=== PATIENT | female | born 1930 | race Asian ===

== ENCOUNTER 2018-12-02 22:14 | Inpatient (IN) | payer OTHER ==
[~2018-12-02] VITALS: Ht 152.4 cm; Wt 62.7 kg
[2018-12-02 22:33] VITALS: Ht 152.4 cm; Wt 62.7 kg
--- NOTE | 2018-12-02 22:35 | NUR ---
PT BIB AMBULANCE WITH C/O GEN WEAKNESS, LACK OF APPETITE, AND ALOC. PER MEDICS "PT WAS NOT RESPONSIVE STATED BY FAMILY MEMBER AT HOME BUT WHEN ARRIVED AND TRANSFERRED TO [facility] PT BECAME MORE AWAKE AND ABLE TO FOLLOW COMMANDS. PTS BS EN ROUTE STATED BY EMT 70 B/P 98/52. PT IS TURKISH SPEAKING, SON AT BEDSIDE TO TRANSLATE. PTS SON STATES PT IS NOT CONFUSED AT THIS TIME, ABLE TO RECOGNIZE HIM AND FOLLOW COMMANDS. PT IS DROWSY BUT EASILY AROUSABLE. RESPS E/U ON ROOM AIR. CHEST RISE EQUAL AND SYMMETERICAL. LUNG SOUNDS DIMNISHED ROB. DENIES ANY CP, SYNCOPE, OR DIZZINESS.
--- NOTE | 2018-12-02 22:45 | NUR ---
EMT AT BEDSIDE FOR EKG
--- NOTE | 2018-12-02 23:03 | NUR ---
LAB AT BEDSIDE.
[2018-12-02 23:35] LABS: ALKALINE PHOSPHATASE 75 U/L (46-116); ALT/SGPT 54 U/L (14-59); AST/SGOT 27 U/L (15-37); BILIRUBIN TOTAL 0.88 mg/dL (0.20-1.00); CALCIUM 8.5 mg/dL (8.5-10.1); CARBON DIOXIDE 26.8 mmol/L (21-32); CHLORIDE SERUM 94 mmol/L (98-107); CREATININE SERUM 2.3 mg/dL (0.6-1.0); POTASSIUM SERUM 3.3 mmol/L (3.5-5.1); SODIUM SERUM 134 mmol/L (136-145); TOTAL PROTEIN, SERUM 6.8 g/dL (6.4-8.2)
[2018-12-02 23:36] LABS: ALBUMIN 3.3 g/dL (3.4-5.0)
[2018-12-02 23:37] LABS: GLUCOSE SERUM 57 mg/dL (74-106)
[2018-12-02 23:51] LABS: microscopic required? NO
[2018-12-03] VITALS (7 sets, daily range): BP systolic 86–117; BP diastolic 22–63
[2018-12-03 00:12] LABS: UA SPECIFIC GRAVITY 1.015 (1.005-1.035); urine erythrocyte NEGATIVE (NEGATIVE)
[2018-12-03 00:43] LABS: BASOPHIL % 0.5 % (0-2); PLATELET COUNT 217 x10^3mcL (130-400); RED CELL DISTRIBUTION WIDTH 18.6 % (11.5-14.5)
--- NOTE | 2018-12-03 01:43 | NUR ---
ULTRASOUND IN PROGRESS
[2018-12-03] MEDS ORDERED: LASIX40 MG PO (02:04)
[2018-12-03] MEDS ORDERED: GLUCOTROL5 MG PO (02:05)
[2018-12-03] MEDS ORDERED: SYNTHROID0.05 MG PO (02:05)
[2018-12-03] MEDS ORDERED: B-121000 MC2 PO (02:05)
[2018-12-03] MEDS ORDERED: ATORVASTATIN CA40 M1 PO (02:06)
[2018-12-03] MEDS ORDERED: CARVEDILOL6.25 M1 PO (02:06)
[2018-12-03] MEDS ORDERED: POTASSIUM CHLO10 MEQ PO (02:07)
[2018-12-03] MEDS ORDERED: METFORMIN HCL500 MG PO (02:08)
[2018-12-03] MEDS ORDERED: BAYER ASPIRIN R81 MG PO (02:09)
--- NOTE | 2018-12-03 02:16 | NUR ---
REPORT GIVEN TO JULIO CÉSAR VIDAL TO ASSUME CARE.
--- NOTE | 2018-12-03 02:50 | NUR ---
REC'D PT FROM ED VIA [facility] ACCOMPANED BY NURSE AND GRAND DAUGHTER. PT TRANSFERRED FROM [place] TO BED BY SLIDING. ADM WITH CC OF GEN WEAKNESS AND ALOC (PT WAS UNRESPONSIVE). PT IS [place]UR[place] AND [place] SPEAKING. GRAND DAUGHTER, DEJA, AT BEDSIDE TO ASSIST WITH TRANSLATION. AAOX1. ORIENTED TO SELF ONLY. REORIENTED TO TIME, PLACE, AND SITUATION. DEJA STATES SHE IS MORE ALERT NOW. TELE 35. NSR WITH BBB. DENIES CP, DIZZINESS, OR PALPITATIONS. NO EDEMA NOTED. ABD SOFT/ROUND. DENIES ABD PAIN, TENDERNESS, OR N/V. TREJO IN PLACE DRAINING YELLOW URINE TO GRAVITY. GEN WEAKNESS. USUALLY AMB WITH WALKER. ECCHYMOSIS TO BUE. IV TO RH AND LFA FLUSHED AND PATENT. SITES WNL. ORIENTED TO DEVICES AND SURROUNDINGS. CALL LIGHT WITHIN REACH, BED AT LOWEST POSITION, BED ALARM ON. WILL CONTINUE TO MONITOR
--- NOTE | 2018-12-03 02:55 | NUR ---
SPOKE TO DR. SANCHEZ. MADE AWARE OF PT'S CURRENT BP 91/36, MAP 54, HR 70 WITH HX OF CHF WITH EF 30%, BNP 258, AND RECENT THORACENTHESIS. ORDERED IVF NS @ 50 ML/HR.
[2018-12-03 03:06] LABS: PHOSPHOROUS 5.1 mg/dL (2.5-4.9)
--- NOTE | 2018-12-03 04:04 | NUR ---
SPOKE TO DR. SANCHEZ. MADE AWARE OF TROP 0.242 (NO TRENDING LABS ORDERED), K 3.3, MISSING DM PROTOCOL, AND REQUEST TO CHANGE CARDIAC DIET TO MECH-SOFT CHOPPED OR PUREE SINCE FAMILY HAS THE PT'S DENTURES.
[2018-12-03 04:17] LABS: CHOLESTEROL/HDL RATIO 8.5
--- NOTE | 2018-12-03 06:00 | NUR ---
SPOKE TO DR. SANCHEZ. MADE AWARE OF 59/59 AND D50 PUSHED. REQUESTED TO ADD DM PROTOCOL. ALSO MADE AWARE OF CURRENT BP 93/22, MAP 45, HR 64. PT IS LETHARGIC AND AWAKENS WITH TACTILE STIMULI. NS INFUSING @ 50 ML/HR. RESIDENT STATED SHE WILL INCREASE IVF RATE.
--- NOTE | 2018-12-03 06:39 | NUR ---
RECHECKED BS 183. PT LETHARGIC AND AWAKENS WITH TACTILE STIMULI. IVF CHANGED TO D5NS @ 80 ML/HR. CALL LIGHT WITHIN REACH, BED AT LOWEST POSITION, BED ALARM ON, SIDE RAILS UP X3. WILL ENDORSE TO DAY NURSE.
--- NOTE | 2018-12-03 08:14 | NUR ---
AT 0705 - RECEIVED PATIENT FROM NIGHT NURSE. PATIENT SLEEPING. RESPIRATIONS REGULAR. MONITOR SHOWING SINUS RHYTHM; RATE 61. IV INFUSING D5NS AT 80ML/HR. AT 0745 - RECEIVED CALL FROM LAB WITH TROPONIN LEVEL OF 0.192 (DOWNWARD TREND). AT 0750 - CRITICAL VALUE RESULTS GIVEN TO DR EPPERSON IN DOCTORS CONFERENCE.
--- NOTE | 2018-12-03 08:17 | NUR ---
RECEIVED ORDERS FOR CARDIOLOGY AND PULMONOLOGY CONSULTS.
--- NOTE | 2018-12-03 09:53 | NUR ---
AT 0930 - RECEIVED CALL FROM DR LOZANO WITH NEW ORDERS FOR: REQUEST RECORDS FROM [facility], [place], SWALLOW EVAL AND CALL DR LOZANO WITH RESULTS OF ULTRASOUND. AT 0945 - PATIENT IS VERY DROWSY, OPENS EYES TO VERBAL ADN TACTILE STIMULI. BLOOD GLUCOSE 139. BP REMAINS LOW (86/34) SPOKE WITH ENVIRONMENTAL LABORATORY TECHNICIAN GLADYS AND RECEIVED ORDER FOR ALBUMIN. SPOKE WITH PATIENT'S DAUGHTER, ESA CASTRO, PER PHONE AND RECEIVED VERBAL CONSNET FOR REQUEST OF RECORDS FROM [facility]. CN DAIANA WITNESS.
--- NOTE | 2018-12-03 10:19 | NUR ---
COMMENCED INFUSION OF 25% ALBUMIN. 100ML TO INFUSE OVER 1 HR.
--- NOTE | 2018-12-03 10:23 | NUR ---
PATIENT'S SON-IN-LAW, MICKEY, AT BEDSIDE.
--- NOTE | 2018-12-03 11:19 | NUR ---
ALBUMIN INFUSION COMPLTED. BP 93/29 MAP 68. HR 60. O2 SAT 100% ON ROOM AIR. PATIENT'S FAMILY, SON-IN-LAW, HELENA CASTRO AND GRAND-DAUGHTER WERE VISITING. UPDATED ON PATIENT CONDITION AND CURRENT PLAN OF CARE.
--- NOTE | 2018-12-03 11:20 | NUR ---
IV NOW INFUSION AT 40 ML/HR - D5NS.
--- NOTE | 2018-12-03 13:33 | NUR ---
PATIENT APPEARS MORE AWAKE AT THIS TIME. HAS BEEN ABLE TO TAKE SMALL AMOUNT OF FOOD FROM LUNCH TRAY - APPLE SAUCE AND JUICE.
--- NOTE | 2018-12-03 15:35 | NUR ---
DR ABRAHAM AT BEDSIDE SPEAKING WITH FAMILY
--- NOTE | 2018-12-03 16:23 | NUR ---
DR LOZANO INFORMED OF ULTRASOUND RESULTS. NO NEW ORDERS FROM HER. DR ABRAHAM HAS SEEN PATIENT AND SPOKEN WITH FAMILY. NEW ORDERS RECEIVED. PATIENT TO BE STARTED ON DOBUTAMINE INFUSION.
--- NOTE | 2018-12-03 16:35 | NUR ---
PT WAS SEEN FOR DYSPHAGIA. PT WAS ABLE TO SAFELY SWALLOW PUREE DIET WITH NECTAR THICK LIQUID. FAMILY WAS EDUCATED ABOUT SAFE SWALLOW GUIDELINE. PT HAD MILD WET VOICE FOR THIN LIQUID. RISK OF ASPIRATION FOR THIN LIQUID. RECOMMENDATION PUREE DIET WITH NECTAR THICK LIQUID SMALL BITES AND SIPS ONLY. UPRIGHT POSITION.
--- NOTE | 2018-12-03 17:23 | NUR ---
AT 1630 - COMMENCED ON DOBUTAMINE INFUSION AT 5 MCG/KG/HR OR EQUIVALENT OF 19 ML/HR. FAMILY AT BEDSIDE. ALSO GIVEN 40 MEQ KCL PO FOR K OF 3.3 PATIENT HAS HAD SWALLOW EVAL WITH A RECOMMENDATION OF PUREED FOOD AND NECTAR THICK LIQUID.
--- NOTE | 2018-12-03 18:43 | NUR ---
PATIENT MORE AWAKE THIS PM. HAS BEEN ABLE TO TAKE PO MEDS AND INTERACT WITH FAMILY. BP IMPROVED. LAST READING 112/34 HR 68. SINUS RHYTH WITH BBB. NO C/O PAIN. IV IN LFA INFILTRATED. WILL RESITE. IV IN R HAND INFUSING DOBUTAMINE AT 19 ML/HR. PATIENT TAKING SMALL AMOUNTS OF PURREE FOOD PO. TREJO CATHETER DRAINGIN MERLE URINE. WILL ENDORSE CARE TO NIGHT NURSE.
--- NOTE | 2018-12-03 19:03 | NUR ---
IV RESITED IN L HAND. IV INFUSION OF D5NS RESUMED AT 50 ML/HR
--- NOTE | 2018-12-03 20:00 | NUR ---
PT RESTING WITH EYES CLOSED, FAMILY AT BEDSIDE. PT EASILY AROUSABLE WITH VERBAL STIMULI. PT DOES NOT OPEN EYES AND FOLLOWS COMMANDS. DENIES DIZZINESS AND HEADACHE. BREATH SOUNDS CLEAR. BREATHING EVEN AND UNLABORED ON ROOM AIR. DENIES CHEST PAIN AND PRESSURE. BOWEL SOUNDS ACTIVE. NO C/O N/V AND ABD PAIN. SCATTERED ECHYMOSIS NOTED ON LUE. IV INTACT ON THE LEFTHAND INFUSING WITH D5 NS AT 40 ML/HR AND IV ON THE RIGHT HAND INFUSING WITH DOBUTAMINE 5 MCG/KG/HR. TREJO CATH IN PLACE AND EMPTY. MADE PT COMFORTABLE. PLACED CALL LIGHT WITH IN REACH. WILL CONTINUE TO MONITOR.
[2018-12-04] VITALS (7 sets, daily range): BP systolic 109–124; BP diastolic 36–85
--- NOTE | 2018-12-04 01:15 | NUR ---
PT RESTING WITH EYES CLOSED. NO DISTRESS AND DISCOMFORT NOTED. WILL CONTINUE TO MONITOR.
[2018-12-04 06:22] LABS: CALCIUM 7.3 mg/dL (8.5-10.1); CARBON DIOXIDE 23.9 mmol/L (21-32); CHLORIDE SERUM 101 mmol/L (98-107); CREATININE SERUM 1.3 mg/dL (0.6-1.0); GLUCOSE SERUM 131 mg/dL (74-106); MAGNESIUM 1.9 mg/dL (1.8-2.4); POTASSIUM SERUM 4.1 mmol/L (3.5-5.1); SODIUM SERUM 135 mmol/L (136-145)
--- NOTE | 2018-12-04 07:04 | NUR ---
PT AWAKE WITH EYES OPEN. NO C/O PAIN AND DISCOMFORT. IV INTACT AND INFUSING ORDERED. BP AND BLLOD SUGAR STABLE. MADE PT COMFORTABLE. WILL ENDORSE TO THE AM NURSE ACCORDINGLY.
[2018-12-04 07:53] LABS: PLATELET COUNT 110 x10^3mcL (130-400); RED CELL DISTRIBUTION WIDTH 18.4 % (11.5-14.5)
--- NOTE | 2018-12-04 08:12 | NUR ---
AT 0705 - RECEIVED PATIENT FROM NIGHT NURSE. AWAKE, ALERT, DIFFICULT TO CHIKI ORIENTATION AT THIS TIME. PATIENT CALM AND COOPERATIVE. MONITOR SHOWING SINUS RHYHTM WITH BBB; RATE 84. IV INFUSING D5NS AT 40 ML/HR IN L HAND AND DOBUTAMINE 5 MCG/KG/MIN = 19 ML /HR. LAST BP 115/85. RESPIRATIONS REGULAR. ON ROOM AIR. TREJO CATHETER DRAINING YELLOW URINE. AT 0756 - RECEIVED CALL FROM LAB WITH CRITICAL HEMATOCRIT OF 21. HB = 7.0 AT 0800 - PRINTOUT OF CRITICAL RESULT GIVEN TO DR KRAFT IN DOCTOR'S CONFERENCE. AT 0810 - PATIENT HAS EATEN PURREED DIET FOR BREAKFAST. MAXIMUM ASSISTANCE REQUIRED WITH MEALS AT THIS TIME.
[2018-12-04 11:54] LABS: ATYPICAL LYMPH 1 %; BAND NEUTROPHIL 0 % (0-10); BASOPHIL 0 % (0-2); MONOCYTE 5 % (0-7); SEGMENTED NEUTROPHILS 91 % (37-75); acanthocyte (spur cell) 2+; rbc morphology (normal/abnorm) ABNORMAL (NORMAL)
[2018-12-04 11:55] LABS: PLATELET MORPHOLOGY PLATELETS DECREASED
[2018-12-04 14:27] LABS: BASOPHIL % 0.1 % (0-2); PLATELET COUNT 178 x10^3mcL (130-400)
[2018-12-04 14:34] LABS: RED CELL DISTRIBUTION WIDTH 18.5 % (11.5-14.5)
--- NOTE | 2018-12-04 14:44 | NUR ---
AT 1015 - SEEN BY DR ABRAHAM. SHE WILL SPEAK WITH TOOL PLANER SET UP OPERATOR REGARDING ORDERING U/S OR KUB FOR PATIENT'S ABDOMEN. AT 1150 - NEW ORDERS RECEIVED. PATIENT FOR KUB ABDOMEN AND FOR BLOOD TRANSFUSION OF 1 UNIT PRBC. AT 1230 - PATIENT'S FAMILY AT BEDSIDE. SPOKE WITH THEM ABOUT CURRENT PLAN OF CARE. FAMILY IN AGREEMENT WITH BLOOD TRANSFUSION. AT 1300 - PATIENT'S DAUGHTER ESA CASTRO, SIGNED CONSENT FORM FOR BLOOD TRANSFUSION. AT 1330 - TOOL PLANER SET UP OPERATOR GLADYS SPOKE WITH PATIENT AND FAMILY AND CODE STATUS CHANGED TO DNR.
--- NOTE | 2018-12-04 15:41 | NUR ---
IV FROM R HAND LEAKING. IV CATHETER REMOVED INTACT. NEW IV INITIATED IN RFA, 20 G. SALINE LOCKED AT THIS TIME, AWAITING BLOOD TRANSFUSION. IV IN L HAND INFUSING NS AT 40 ML/HR AND DOBUTAMINE AT 19 ML/HR. DAUGHTER REMAINS AT BEDSIDE. PATIENT HAS BEEN HAVING GOOD DIURESIS POST IV LASIX. HAS PUT OUT 800 ML THUS FAR.
[2018-12-04 16:09] LABS: rbc morphology (normal/abnorm) ABNORMAL (NORMAL)
[2018-12-04 16:11] LABS: ovalocyte/elliptocyte 1+; tear drop cell (dacryocyte) 1+
--- NOTE | 2018-12-04 17:40 | NUR ---
AT 1610 - GIVEN BENADRYL AND TYLANOL PER EMAR PREMEDICATION PRIOR TO BLOOD TRANSFUSION. AT 1730 - COMMENCED BLOOD TRANSFUSION. PATIENT TO RECEIVE 1 UNIT PRBC. PATIENT IS AWAKE, ALERT. PATIENT'S FAMILY AT BEDSIDE.
--- NOTE | 2018-12-04 19:00 | NUR ---
BLOOD TRANSFUSION IN PROGRESS. VSS. PATIENT AWAKE, ALERT AND APPEARS ORIENTED. IV IN L HAND INFUSING DOBUTAMINE AT 5MCG/KG/MIN = 19 ML/HR. BLOOD TRANSFUSING IN RFA. TREJO CATHETER DRAINING YELLOW URINE. 950 ML URINE OUTPUT THIS SHIFT. PATIENT EATING A PURREED DIET, BUT ATE ONLY A SMALL AMOUNT THIS EVENING. NO C/O PAIN. SCDS TO BLE IN PLACE. PATIENT MOVING IN BED WELL. POSITIONED FOR COMFORT. WILL ENDORSE CARE TO NIGHT NURSE.
--- NOTE | 2018-12-04 19:30 | NUR ---
AOX4, PER FAMILY. MACEDONIAN SPEAKING. TELE #35, SR WITH BBB. LUNGS DIMINISHED ON RA. PULSES PALPABLE. NO EDEMA. BOWEL SOUNDS ACTIVE. TREJO PRESENT DRAINING YELLOW URINE. GENERALIZED WEAKNESS. LARGE BRUISE TO LUE. DENIES PAIN. IV TO LH INFUSING DOBUTAMINE @ 19 ML/HR. BLOOD INFUSION RUNNING TO RFA, NO ADVERSE REACTIONS EVIDENT. BED IN LOWEST POSITION, 2 SIDE RAILS UP, CALL LIGHT IN REACH. INSTRUCTED TO CALL FOR ASSISTANCE.
--- NOTE | 2018-12-04 20:35 | NUR ---
BLOOD TRANSFUSION COMPLETE. VSS. DR. SANCHEZ PAGE GATED TO NOTIFY AND POSSIBLY ORDER REPEAT CBC. PT IN NO ACUTE DISTRESS. WILL CONTINUE TO MONITOR.
[2018-12-05 04:49] VITALS: BP 141/60
[2018-12-05 06:16] LABS: CARBON DIOXIDE 22.7 mmol/L (21-32); CHLORIDE SERUM 99 mmol/L (98-107); CREATININE SERUM 1.1 mg/dL (0.6-1.0); GLUCOSE SERUM 123 mg/dL (74-106); POTASSIUM SERUM 3.3 mmol/L (3.5-5.1); SODIUM SERUM 132 mmol/L (136-145)
[2018-12-05 06:43] LABS: BASOPHIL % 0.1 % (0-2); PLATELET COUNT 179 x10^3mcL (130-400)
[2018-12-05 06:44] LABS: RED CELL DISTRIBUTION WIDTH 17.8 % (11.5-14.5)
--- NOTE | 2018-12-05 06:55 | NUR ---
NO ACUTE DISTRESS NOTED. NO ACUTE CHANGES. NO BM OVERNIGHT. WILL ENDORSE TO ONCOMING RN.
--- NOTE | 2018-12-05 07:05 | NUR ---
SEEN IN BED SLEEPING, EASILY TO AROUSE AND WENT BACK TO SLEEP. PATIENT'S SON AT BEDSIDE. NO SOB NOTED ON ROOM AIR. LUNG SOUND CTA BILATERALLY. TELE#35 SR WITH BBB. DENIES PAIN. NO EDEMA TO EXTREAMITIES. SCD TO BLE MAINTAINED. ON PUREE DIET WITH NECTAR THICK LIQUIDS. ASPIRATION PRECAUTION. TREJO CATH DRAINING TO GRAVITY YELLOW URINE COLORED. ON DOBUTAMINE AT 5MCG/KG/MIN, IV SITE RFA INTACT AND PATENT. PLAN OF CARE INFORMED, CALL LIGHT PLACED WITHIN EASY REACH. SIDERAILS UP X2.
[2018-12-05 08:17] VITALS: BP 133/58
[2018-12-05 12:01] VITALS: BP 134/72
--- NOTE | 2018-12-05 12:38 | NUR ---
PATIENT'S FAMILY MEMBER AT BEDSIDE STATED THAT PATIENT DID NOT LIKE HOSPITAL FOOD AND HAD A VERY POOR APPETITE. HIEN DELCID MADE AWARE.
--- NOTE | 2018-12-05 13:00 | NUR ---
FAMILY INFORMED THAT OK TO BRING FOOD FROM OUTSIDE FOR PATIENT WITH PUREE TEXTURE.
[2018-12-05 16:29] VITALS: BP 130/64
--- NOTE | 2018-12-05 18:53 | NUR ---
NO ANY DISTRESS THROUGHOUT SHIFT. AAOX4, FAMILY AT BEDSIDE MOST OF THE TIME. DENIES CORTNEY. DOBUTAMINE TO RFA INFUSING WELL PER DOCTOR'S ORDER. VSS. ALL SCHEDULED MEDS GIVEN. TREJO CATH DRAINING OUT 400 ML MERLE URINE COLORED THROUGHOUT SHIFT.
--- NOTE | 2018-12-05 20:28 | NUR ---
AWAKE AND ALERT, ABLE TO MAKE NEEDS KNOWN. HOB ELEVATED 45 DEG. BREATHING EVEN AND UNLABORED ON ROOM AIR, BREATHING UNLABORED, LUNG SOUNDS DIMINISHED. SINUS RHYTHM ON TELE, APPEARS TO HAVE BBB. DENIES HAVING CHEST PAIN OR CHEST DISCOMFORT. NOTED LARGE AREA OF ECCHYMOSES TO LEFT AC AREA, ALSO WITH ECCHYMOSES TO RIGHT AC AND POSTERIOR RIGHT FOREARM. ON DOBUTAMINE IV DRIP AT 5 MCG/KG/MIN (19ML/HR), INFUSING TO IV SITE TO RIGHT WRIST/LOWER RIGHT FOREARM. IV FLUSHED WELL, GOOD BLOOD RETURN. NO REDNESS OR SWELLING NOTED TO IV SITE. STATED HAVING PAIN TO KNUCLE 3RD FINGER OF RIGHT HAND.
[2018-12-05 21:01] VITALS: BP 121/53
--- NOTE | 2018-12-05 22:38 | NUR ---
PHOTODOCUMENTED ECCHYMOSES TO LEFT AND RIGHT ARMS. SEE CHART. FAMILY MEMBERS IN ROOM.
[2018-12-06 01:01] VITALS: BP 130/52
--- NOTE | 2018-12-06 01:02 | NUR ---
EYES CLOSED, EASILY AWAKENED. DAUGHTER IN ROOM, STAYING THE NIGHT. VITAL SIGNS STABLE. BREATHING EVEN AND UNLABORED. DENIES HAVING PAIN. IV SITE TO RIGHT WRIST/LOWER FOREARM FREE FROM REDNESS OR SWELLING, FLUSHED WELL WITH NS.
--- NOTE | 2018-12-06 04:54 | NUR ---
PT'S DAUGHTER CALLED, STATED WET AT THE BACK. NOTED IV MAY BE LEAKING FROM THE PORT. IV SITE FREE FROM SWELLING OR REDNESS. FLUSHED WELL. GOOD BLOOD RETURN. CHANGED ALL IV TUBINGS. CHANGED LINEN AND DRESSING. IV OF NS INFUSING WELL AT 40ML/HR. DOBUTAMINE INFUSING WELL AT 5CMG/KG/MIN. CONTINUING TO MONITOR.
--- NOTE | 2018-12-06 04:57 | NUR ---
PT STATED HAVING NUMBNESS AND TINGLING TO RIGHT LEG. INFORMED DR. POPE WHO CAME IN ROOM TO ASSESS PT. NEW ORDER FOR MOTRIN RECEIVED.
[2018-12-06 05:59] VITALS: BP 138/63
[2018-12-06 06:56] LABS: BASOPHIL % 0.1 % (0-2); PLATELET COUNT 196 x10^3mcL (130-400)
[2018-12-06 07:03] LABS: RED CELL DISTRIBUTION WIDTH 18.1 % (11.5-14.5)
--- NOTE | 2018-12-06 07:15 | NUR ---
EYES CLOSED, BREATHING EVEN AND UNLABORED. NO GRIMACING OR OTHER OBJECTIVE SIGNS OF PAIN. DOBUTAMINE INFUSING AT 5MCG/KG/MIN AND IVF OF NS INFUSING AT 40ML/HR TO RIGHT WRIST/FOREARM. IV SITE FREE FROM REDNESS OR SWELLING. CALL LIGHT WITHIN EASY REACH. DAUGHTER IN ROOM ON RECLINER. ENDORSED TO NURSE NIÑO
--- NOTE | 2018-12-06 07:16 | NUR ---
SEEN SLEEPING WITH EYES CLOSED, NO RESP DISTRESS NOTED ON ROOM AIR, TELE#35 NSR/BBB. IVF NS AT 40ML/HR AND DOBUTAMINE AT 5MCG/KG/MIN INFUSING WELL, NO REDNESS OR SIGNS OF INFILTRATION TO RFA IV SITE. GEN BODY WEAKNESS. TREJO CATH DRAINING TO GRAVITY MERLE URINE OUTPUT NOTED. NO EDEMA NOTED, SCD TO BLE INPLACED. ON PUREE DIET WITH NECTAR THICK LIQUIDS, FAMILY MEMBER AT BEDSIDE. PLAN OF CARE INFORMED, CALL LIGHT PLACED WITHIN EASY REACH, SIDERAILS UP X2.
[2018-12-06 07:28] LABS: CALCIUM 7.1 mg/dL (8.5-10.1); CARBON DIOXIDE 22.8 mmol/L (21-32); CHLORIDE SERUM 97 mmol/L (98-107); CREATININE SERUM 1.2 mg/dL (0.6-1.0); GLUCOSE SERUM 165 mg/dL (74-106); MAGNESIUM 1.5 mg/dL (1.8-2.4); PHOSPHOROUS 2.1 mg/dL (2.5-4.9); POTASSIUM SERUM 3.6 mmol/L (3.5-5.1); SODIUM SERUM 130 mmol/L (136-145)
[2018-12-06 08:22] VITALS: BP 127/55
--- NOTE | 2018-12-06 08:28 | NUR ---
PATIENT'S DAUGHTER CALLED STATED THAT IV CATHETER ACCIDENTLY CAME OFF, NO REDNESS OR SIGNS OF INFILTRATION NOTED TO RFA IV SITE, NO BLEEDING NOTED. PATIENT'S DAUGHTER ASKED TO RESTART IV ACCESS LATER. REPOSITIONED WITH 2 ASSISTANTS.
--- NOTE | 2018-12-06 09:30 | NUR ---
SEEN BY RN NEONATAL ICU BHAVIN, PLAN OF CARE UPDATED TO PATIENT'S DAUGHTER AT BEDSIDE.
--- NOTE | 2018-12-06 10:00 | NUR ---
IV CATHETER#22 INSERTED TO RT HAND WITH GOOD BLD RETURNED AND FLUSHED WELL BY MARCY IVEY. MG RIDER 2GM (MG=1.5) INFUSING AT THIS TIME. PATIENT'S DAUGHTER AT BEDSIDE MADE AWARE.
[2018-12-06 11:20] VITALS: BP 118/48
--- NOTE | 2018-12-06 12:30 | NUR ---
NO NAUSEA/ASPIRATION PER PATIENT'S FAMILY. APPETITE IMPROVED PER FAMILY.
--- NOTE | 2018-12-06 17:36 | NUR ---
FSBS =171, 3 UNITS IR SQ GIVEN. PATIENTT IS HAVING DINNER ASSISTED BY FAMILY MEMBERS, NO ASPIRATION NOTED. IVF NS AND DOBUTAMINE INFUSING WELL TO RIGHT HAND IV SITE. NO ANY DISTRESS NOTED.
[2018-12-06 18:00] VITALS: BP 114/55
--- NOTE | 2018-12-06 18:00 | NUR ---
DOCTOR ABRAHAM AT BEDSIDE DISCUSSED WITH PATIENT'S FAMILY MEMBERS.
--- NOTE | 2018-12-06 18:47 | NUR ---
DOBUTAMINE DECREASED TO 2.5MCG/KG/MIN PER DOCTOR ABRAHAM'S ORDER.
--- NOTE | 2018-12-06 18:50 | NUR ---
NO ANY DISTRESS THROUGHOUT SHIFT. VSS. DENIES PAIN. BREATHING E/U ON ROOM AIR. NO ASPIRATION ON PUREE DIET/ NECTAR THICK LIQUIDS. ALL SCHEDULED MEDS GIVEN. NEIL PLASCENCIA. IV SITE TO RT HAND PATENT. FAMILY AT BEDSIDE AT ALL TIMES.
--- NOTE | 2018-12-06 19:52 | NUR ---
AWAKE AND ALERT, ORIENTED TO NAME, PLACE, TIME. ABLE TO MAKE NEEDS KNOWN. HOB ELEVATED 30 DEG. BREATHING EVEN AND UNLABORED ON ROOM AIR. LUNG SOUNDS DIMINISHED. DENIES HAVING PAIN AT THIS TIME. IVF OF NS AT 40ML/HR AND DOBUTAMINE AT 2.5MCG/KG/MIN INFUSING TO RIGHT HAND IV. IV SITE FLUSHED WELL, GOOD BLOOD RETURN. NO REDNESS OR SWELLING NOTED TO SITE.
[2018-12-06 21:21] VITALS: BP 109/51
--- NOTE | 2018-12-07 01:47 | NUR ---
eyes closed, breathing even and unlabored. hob kept elevated 30 deg. iv site to right hand free redness or swelling. iv dobutamine infusing well at 2.5mcg/kg/min and ivf of ns at 40ml/hr infusing well. son at bedside on recliner chair.
--- NOTE | 2018-12-07 02:40 | NUR ---
CHANGED TELEMONITOR FROM TELEBOX 35 TO 19
[2018-12-07 05:58] VITALS: BP 95/54
--- NOTE | 2018-12-07 06:41 | NUR ---
EYES CLOSED, EASILY AWAKENED. BREATHING EVEN AND UNLABORED ON ROOM AIR. IV SITE TO RIGHT HAND FREE FROM REDNESS OR SWELLING. IV NS AND DOBUTAMINE INFUSING WELL. CALL LIGHT WITHIN EASY REACH. SON ON RECLINER CHAIR., STAYED THROUGH THE NIGHT.
[2018-12-07 07:01] LABS: BASOPHIL % 0.2 % (0-2); PLATELET COUNT 230 x10^3mcL (130-400)
[2018-12-07 07:02] LABS: RED CELL DISTRIBUTION WIDTH 18.5 % (11.5-14.5)
--- NOTE | 2018-12-07 07:18 | NUR ---
RECEIVED PATIENT FROM BRET VIDAL. PT RESTING COMFORTABLY IN BED. ALL NEEDS MET.
--- NOTE | 2018-12-07 07:21 | NUR ---
eyes closed, breathing even and unlabored. endorsed to nurse harmony
[2018-12-07 07:34] LABS: CALCIUM 6.6 mg/dL (8.5-10.1); CARBON DIOXIDE 23.8 mmol/L (21-32); CHLORIDE SERUM 97 mmol/L (98-107); CHOLESTEROL 138 mg/dL (<200); GLUCOSE SERUM 104 mg/dL (74-106); SODIUM SERUM 131 mmol/L (136-145); TRIGLYCERIDES 121 mg/dL (<150)
[2018-12-07 07:47] LABS: CHOLESTEROL/HDL RATIO 6.3; HDL CHOLESTEROL 22 mg/dL (40-60)
[2018-12-07 09:35] VITALS: BP 112/44
--- NOTE | 2018-12-07 09:49 | NUR ---
IN TO SEE PATIENT AND ADMINISTER MEDICATION. (SEE eMAR). PT RESTING COMFORTABLY IN BED. ALL NEEDS MET.
--- NOTE | 2018-12-07 12:24 | NUR ---
IN TO CHECK BLOOD GLUCOSE. GLUCOSE IS 139. NO ACTION REQUIRED.
[2018-12-07 12:30] VITALS: BP 116/86
--- NOTE | 2018-12-07 15:24 | NUR ---
Initial Nutrition Assessment Dx: Hypoglycemia, elevated troponins PMHx: CHF, HTN, DM, Hypothyroidism PSHx: Unknown Labs: (12/07) Na 131L, K 3L, BG 104, A1c 9.7H, WBC 6.8, H/H 8.6L/26L BG accucheck readings 12/05-12/07: 125-171 mg/dL with all readings <180 mg/dL. Meds: D50%, Dobutrex, Humulin, Lasix, [place], NSIV, Synthroid, Tylenol, Zofran Diet: CCHO diet, pureed texture, with NTL's PO Intake: (12/07) B: 10% (12/06) B: 30% L: 5% D: 50% (12/05) B: 80% D: 10% Ht: 60" (152 cm) Wt: 138# (62.7 kg) BMI: 27 (Acceptable considering advanced age) IBW: 100# %IBW: 138% AJBW: 110# (49.8 kg) UBW: 140# Age: 88 y/o elderly female Food Allergies: NKFA Skin: Ecchymosis to BUE Felice: 15 Edema: None GI: Last BM x 1 (12/04) Per H&P, pt. admitted with confusion and poor appetite 2 days. Complete history unable to be obtained d/t pt. being a poor historian and not able to answer questions during admission. Pt. now more alert at this time with improvement per provider progress notes. Abdominal x-ray conducted on 12/04/18, with unremarkable findings per provider notes. ST evaluation conducted on 12/03/18 with recommendations for pureed diet with NTL's for aspiration precautions. Possible hospice care plan was discussed with family, however, family had refused hospice care at this time per bed huddle discussion, as pt. is notably more alert than at admission. Pt. unable to answer nutrition related questions during visit; family at bedside present. Pt. family endorses fair appetite that has improved over the past 2 days, and no GI distress at this time. No noted difficulty chewing or swallowing, and no s/s aspiration noted per RN. Pt. noted not to enjoy foods served at the facility; per provider, pt. family given permission to provide pureed texture foods with thickened liquids for pt. Problem with: No c/o N/V/D/C Problems with: Chewing: N Swallowing: N Current appetite: Fair to poor Recent wt change: None %wt change: N/A Vitamin/Supplement use: None Special diet at home: Regular Physical activity: None d/t advanced age and chronic conditions Education: Pt. family informed of [facility] diet and associated dietary restrictions. Family declined further diet education at this time. Requesting ONS for pt. as pt. hx poor PO intake; intake <75% kcal and protein needs-pt. would benefit from adding ONS to diet regimen. Estimated Nutritional Needs Based on adjusted body weight 49.7 kg: Energy: 9470-4567 kcal/d (25-30 kcal/kg- geriatric maintenance) Protein: 50-60 g/d (1.0-1.2 g/kg)-geriatric maintenance and preservation of lean body mass Fluid: 3446-0384 ml/d (1 ml/kcal-fluid balance) or per doctor Nutrition Diagnosis 1. Inadequate PO intake r/t reported poor appetite prior to admission AEB documented PO intake meeting <75% estimated calorie and protein needs. Intervention/RD recommendations 1. Continue CCHO, pureed, NTL's diet as tolerated. 2. Provide Glucerna TID for poor PO intake/poor appetite to provide an additional 660 calories and 30 g protein. Monitor/Evaluate Goal: PO intake at least 50% of estimated needs, tolerance to diet texture/liquid consistency Monitor: PO intake, Labs, GI function, diet tolerance, weights F/U in 2-3 days as high risk (12/09-12/10)
--- NOTE | 2018-12-07 15:27 | NUR ---
Intervention/RD recommendations 1. Continue CCHO, pureed, NTL's diet as tolerated. 2. Provide Glucerna TID for poor PO intake/poor appetite to provide an additional 660 calories and 30 g protein.
--- NOTE | 2018-12-07 16:38 | NUR ---
N TO CHECK BLOOD GLUCOSE. GLUCOSE IS 149. NO ACTION REQUIRED.
[2018-12-07 18:00] VITALS: BP 103/55
--- NOTE | 2018-12-07 19:23 | NUR ---
REPORT GIVEN TO SUSAN VIDAL. PT RESTING COMFORTABLY IN BED WITH FAMILY AT BEDSIDE. ALL NEEDS MET. ALL QUESTIONS AND CONCERNS ADDRESSED. ALL CARES ENDORSED.
--- NOTE | 2018-12-07 19:30 | NUR ---
REC'D PT FROM DAY NURSE. FAMILY AT BEDSIDE. PT RESTING IN BED WITH HOB UP. AAOX2-3. ORIENTED TO SELF, , PLACE, AND MONTH. REORIENTED TO YEAR. FOLLOWS COMMANDS. SPEECH CLEAR. FAMILY ASSISTING WITH TRANSLATIONS- PT IS [place] SPEAKING. MED SURG, NO TELE. DENIES CP, DIZZINESS, OR PALPITATIONS. NO EDEMA NOTED. DENIES RESP DISTRESS OR SOB. BREATHING EVEN/UNLABORED ON RA. ABD SOFT/ROUND. DENIES ABD PAIN, TENDERNESS, OR N/V. TREJO IN PLACE DRAINING YELLOW URINE TO GRAVITY. GEN WEAKNESS. AMB WITH WALKER AT HOME. ECCHYMOSIS TO BUE. IV TO RH PATENT AND INFUSING, SITE WNL. CALL LIGHT WITHIN REACH, BED AT LOWEST POSITION, BED ALARM ON. WILL CONTINUE TO MONITOR.
[2018-12-07 21:03] VITALS: BP 99/44
--- NOTE | 2018-12-07 21:23 | NUR ---
SPOKE TO DR. SANCHEZ. MADE AWARE OF BP 99/44, MAP 62, HR 69. ALSO MADE AWARE OF STOOL OB + WITH STABLE H/H. NO INTERVENTIONS AT THIS TIME PER MD. WILL CONTINUE TO MONITOR.
--- NOTE | 2018-12-08 01:45 | NUR ---
PT RESTING IN BED WITH EYES CLOSED. NO SIGNS OF DISTRESS NOTED. BREATHING EVEN/UNLABORED ON RA. CALL LIGHT WITHIN REACH, BED AT LOWEST POSITION, DAUGHTER AT BEDSIDE ON RECLINER. WILL CONTINUE TO MONITOR.
[2018-12-08 05:59] VITALS: BP 98/42
--- NOTE | 2018-12-08 06:10 | NUR ---
PT RESTING IN BED WITH EYES CLOSED. AWAKENS WITH VERBAL STIMULI. NO COMPLAINTS AT THIS TIME. APPEARS COMFORTABLE. BREATHING EVEN/UNLABORED ON RA. NO SIGNIFICANT CHANGES DURING SHIFT. TREJO CARE COMPLETED. 200 ML DARK YELLOW URINE OUT WITH SEDIMENTS. CALL LIGHT WITHIN REACH, BED AT LOWEST POSITION, DAUGHTER AT BEDSIDE. WILL ENDORSE TO DAY NURSE.
--- NOTE | 2018-12-08 06:19 | NUR ---
SPOKE TO DR. SANCHEZ AND MADE AWARE OF BP 98/42, MAP 61, HR 78. PT IS ASYMPTOMATIC. NO CHANGES IN ORDERS AT THIS TIME.
[2018-12-08 06:44] LABS: BASOPHIL % 0.1 % (0-2); CALCIUM 7.1 mg/dL (8.5-10.1); CARBON DIOXIDE 26.1 mmol/L (21-32); CHLORIDE SERUM 100 mmol/L (98-107); CREATININE SERUM 0.9 mg/dL (0.6-1.0); GLUCOSE SERUM 116 mg/dL (74-106); MAGNESIUM 1.8 mg/dL (1.8-2.4); PLATELET COUNT 248 x10^3mcL (130-400); POTASSIUM SERUM 3.1 mmol/L (3.5-5.1); RED CELL DISTRIBUTION WIDTH 19.3 % (11.5-14.5); SODIUM SERUM 135 mmol/L (136-145)
--- NOTE | 2018-12-08 07:40 | NUR ---
RC'D PT RESTING IN BED WITH NO APPARENT SIGNS OF DISTRESS. A/A/O/X2-3. MEDSURG. DENIES CHEST PAIN/PRESSURE. PALP PULSES, NO EDEMA NOTED. RESPIRATONS EQUAL AND UNLABORED. ON RA, DENIES SOB. ABDOMEN SOFT AND NONTEDNER. ACTIVE BS. DENIES N/V. FC WITH MERLE URINE DRAINING TO GRAVITY, WNL. GENERALIZED WEAKNESS. ECCYMOSIS NOTED TO BUE. PT DENIES PAIN AT THIS TIME. IV PATENT AND INTACT. BED IN LOW POSITION. CALL LIGHT IN REACH. WILL CONTINUE TO MONITOR
[2018-12-08 08:45] VITALS: BP 110/53
--- NOTE | 2018-12-08 08:51 | NUR ---
AM MEDICATIONS GIVEN. PT TOLERATED WELL. RESPIRATIONS EQUAL AND UNLABORED. DENIES SOB/PAIN AT THIS TIME. BED IN LOW POSITION. CALL LIGHT IN REACH. WILL CONTINUE TO MONITOR
--- NOTE | 2018-12-08 12:22 | NUR ---
PT RESTING IN BED WITH NO APPARENT SIGNS OF DISTRESS. RESPIRAITONS EQUAL AND UNLABROED. ON RA, DENIES SOB. PT DENIES PAIN AT THIS TIME. BED IN LOW POSITION. CALL LIGHT IN REACH. FAMILY PRESENT AT BEDSIDE. WILL CONTINUE TO MONTIOR
--- NOTE | 2018-12-08 16:03 | NUR ---
PER SWALLOW EVAL, OKAY WITH REGULAR LIQUIDS
--- NOTE | 2018-12-08 16:20 | NUR ---
PT WAS SEEN FOR DYSPHAGIA. PT WAS ABLE TO SAFELY SWALLOW PUREE DIET WITH THIN LIQUID. PT WAS ABLE TO USE COMPENSATORY STRATEGIES TO SAFELY SWALLOW THIN LIQUID. DC NECTAR THICK LIQUID. RECOMMENDATION PUREE DIET WITH THIN LIQUID. UPRIGHT POSITION. SMALL BITES AND SIPS ONLY.
[2018-12-08 16:43] VITALS: BP 110/53
[2018-12-08 17:00] VITALS: BP 115/58
--- NOTE | 2018-12-08 18:37 | NUR ---
PT RESTING IN BED WITH NO APPARENT SIGNS OF DISTRESS. MEDUSRG. DENIES CHEST PAIN/PRESSURE. RESPIRAITONS EQUAL AND UNLABORED. ON RA, DNEIES SOB. GENERALIZED WEAKNESS. USES FWW FOR AMBULATION.. PT DENIES PAIN AT THIS TIME. IV PATENT AND INTACT. BED IN LOW POSITION. CALL LIGHT IN REACH. WILL ENDORSE TO HASH SLINGER RN
--- NOTE | 2018-12-08 19:35 | NUR ---
PT. AWAKE, ALERT, ORIENTED TO SELF AND PLACE. ABLE TO FOLLOW COMMANDS. FAMILY AT BEDSIDE, ASSIST W/ TRANSLATION. SPEECH CLEAR, SOMETIMES SLOW. SOME GENERALIZED WEAKNESS NOTED. ABLE TO MOVE ALL EXTREMITIES. PEDAL PULSES MODERATE BLE. BREATH SOUNDS CLEAR THROUGHOUT LUNG BO, RESP. EVEN, UNLABORED. PT. ON RA. NO SOB NOTED. ABD. SOFT AND ROUND, BOWEL SOUNDS ACTIVE. F/C DRAINING WELL TO GRAVITY. DENIES ANY PAIN OR DISCOMFORT. IVF INFUSING WELL, SITE INTACT. CALL LIGHT WITHIN REACH.
--- NOTE | 2018-12-08 20:09 | NUR ---
DR. SANCHEZ MADE AWARE THAT THE PT.'S FAMILY NEEDED MORE TIME TO PREPARE THEIR HOME FOR THE PT. THE DAUGHTER, KATTY, STATED THAT TOMORROW WOULD THEY WILL HAVE EVERYTHING TOGETHER TO ACCEPT THE PT.
[2018-12-08 21:13] VITALS: BP 101/56
--- NOTE | 2018-12-09 00:46 | NUR ---
FAMILY REMAINS AT BEDSIDE. NO COMPLAINTS FROM PATIENT THUS FAR. APPEARS TO BE SLEEPING W/ EYES CLOSED, COMFORTABLE. CALL LIGHT REMAINS WITHIN REACH.
[2018-12-09 05:53] VITALS: BP 112/55
--- NOTE | 2018-12-09 06:06 | NUR ---
PT.'S IV CAME OUT. CATH INTACT. PT.S FAMILY ASKING IF THEY NEED HER IV SINCE SHE'S GOING HOME. CHECKED W/ DR. SANCHEZ, MADE HER AWARE THAT PT.'S IV IS OUT. PER DR. SANCHEZ, NO NEED FOR ANOTHER IV CATH AT THIS TIME SINCE PT. IS SCHEDULED TO GO HOME TODAY. PT.'S DAUGHTER MADE AWARE.
--- NOTE | 2018-12-09 06:51 | NUR ---
PT. HAD UNEVENTFUL NIGHT, RESTED WELL. FAMILY REMAINS AT BEDSIDE. WILL ENDORSE PT. CARE TO INCOMING NURSE.
--- NOTE | 2018-12-09 07:10 | NUR ---
RECEIVED PT FROM BEN YEE. PT FOUND RESTING IN BED WITH BOTH EYES CLOSED. NO S/S OF ACUTE DISTRESS. FAMILY AT BEDSIDE. PT CALM AT THIS TIME. MED-SURG. RR EVEN/UNLABORED. NO S/S OF ACUTE RESP DISTRESS. NO IV ACCESS AT THIS TIME. BED IN LOW POSITION. CALL LIGHT WITHIN REACH. WILL CONT. TO MONITOR.
[2018-12-09 09:48] VITALS: BP 124/54
[2018-12-09 11:10] VITALS: BP 124/54
--- NOTE | 2018-12-09 12:16 | NUR ---
DONY TRAINING COMPLETED. BALLOON DEFLATED, TREJO REMOVED, CATHETER IN TACT. TOLERATED PROCEDURE WELL. AA/OX4. NO S/S OF ACUTE DISTRESS. URINE OUTPUT FROM TREJO 50CC, MERLE. NO COMPLAINT OF PAIN. NO SOB ON ROOM AIR. NO CHEST PAIN. FAMILY MEMBER AT BEDSIDE. BED IN LOW POSITION. CALL LIGHT WITHIN REACH. WILL CONT. TO MONITOR.
--- NOTE | 2018-12-09 15:50 | NUR ---
PT BEING DISCHARGED TO HOME. AA/OX4. NO S/S OF ACUTE DISTRESS. ASSISTED PT TO AMBULATE TO RESTROOM. NEEDS TWO PERSON ASSIST TO AMBULATE. PT VOID X1, URINE OUTPUT 100CC. DISCHARGE EDUCATION PROVIDED TO PATIENT AND FAMILY. INSTRUCTED TO FOLLOW UP WITH PCP AT UPCOMING APPT. VERBALIZED UNDERSTANDING. DENIES SOB. NO CHEST PAIN. NO IV ACCESS. NO TELE. CALM/COOPERATIVE. NO DIZZINESS. NO N/V. NO JOHNS. BELONGINGS WITH PATIENT.
--- NOTE | 2018-12-09 16:10 | NUR ---
TAKEN TO DISCHARGE LOBBY BY TERRY YU. TAKEN BY WHEELCHAIR. AWAKE, ALERT, ORIENTED X4. NO S/S OF ACUTE DISTRESS. BELONGINGS WITH PATIENT.
== END 2018-12-09 16:09 | disposition home or self-care (01) | DRG 637 ==
LOC: ED 22:14 → DU 12-03 01:41 → MU 12-03 01:41 → DU 12-03 02:27 → MU 12-07 13:26
PROVIDERS: Emergency Medicine; Internal Medicine Cardiovascular Disease; ADMIT Internal Medicine
DX: E11.649 Type 2 diabetes mellitus with hypoglycemia without coma (principal); G93.41 Metabolic encephalopathy; J90 Pleural effusion, not elsewhere classified; E11.65 Type 2 diabetes mellitus with hyperglycemia; I95.9 Hypotension, unspecified; D50.9 Iron deficiency anemia, unspecified; D72.829 Elevated white blood cell count, unspecified; E03.9 Hypothyroidism, unspecified; R62.7 Adult failure to thrive; F03.90 Unspecified dementia, unspecified severity, without behavioral disturbance, psychotic disturbance, mood disturbance, and anxiety; Z68.34 Body mass index [BMI] 34.0-34.9, adult; Z79.84 Long term (current) use of oral hypoglycemic drugs
CPT/HCPCS: 36600; 82962; 83880; 92526-GN; 92610; 97110-GP; 97116-GP; 97530-GP; J1250; J1815; J1940; J3475; J3480; J3490; J7030; J7050; P9016; P9047; Q0092; Q0163